=== PATIENT | female | born 1965 | race Caucasian/White ===

== ENCOUNTER 2024-09-08 10:09 | Day surgery (SDC) | payer OTHER ==
[2024-09-08] MEDS: Zoledronic Acid/Mannitol&Water 5 MG in Premix 1 BAG IVPB SCH (10:31)
[2024-09-08 10:38] VITALS: BP 115/65; TEMP 98
[2024-09-09] MEDS ORDERED: FLU (Fluarix Triv) TS24-25(6MOS UP)/PF 45 MCG/0.5 ML Syringe IM ONE (11:00)
== END 2024-09-08 11:25 | disposition home or self-care (01) ==
LOC: ONC/OP 10:09
PROVIDERS: ATTEND Internal Medicine
DX: M81.0 Age-related osteoporosis without current pathological fracture (principal)
CPT/HCPCS: 96365; J3489

== ENCOUNTER 2024-09-09 13:45 | Outpatient (CLI) | payer OTHER | END 2024-09-09 13:46 | disposition home or self-care (01) | LOC: SCSMRI 13:45 | PROVIDERS: ATTEND Internal Medicine | DX: R42 Dizziness and giddiness (principal) | CPT/HCPCS: 70553; 76376 ==